=== PATIENT | female | born 1970 | race African-American/Black ===

== ENCOUNTER 2018-06-11 03:45 | Emergency (ER) | payer MEDICAID ==
[2018-06-11 03:53] VITALS: BP 122/81
[2018-06-11] MEDS ORDERED: DEXAMETHASONE SOD PHOS INJ 10 MG/1 ML VIAL IM ONE (04:21)
--- NOTE | 2018-06-11 05:03 | ER Document Report ---
HPI - HPI Patient complains to provider of: ear pain, cough, sore throat Time Seen by Provider: 06/11/18 04:11 Pain Level: 4 Context: Patient is a 47-year-old female that comes to the emergency department for chief complaint of ear pain worse on the left, congestion, cough, sore throat. Symptoms began about 4 days ago. She denies fever, wheezing, difficulty breathing, chest pain. She states she had asthma as a child, she does not smoke , she is not on any current treatments for asthma. Past medical history of ulcerative colitis, not on any steroids, on mesalamine. - CONSTITUTIONAL Constitutional: DENIES: Fever, Chills - EENT EENT: REPORTS: Sore Throat, Ear Pain - bilateral. DENIES: Eye problems - NEURO Neurology: DENIES: Headache, Weakness, Vision blurred, Dizzinesss / Vertigo - CARDIOVASCULAR Cardiovascular: DENIES: Chest pain - RESPIRATORY Respiratory: REPORTS: Coughing. DENIES: Trouble Breathing - GASTROINTESTINAL Gastrointestinal: DENIES: Abdominal Pain, Black / Bloody Stools - URINARY Urinary: DENIES: Dysuria, Urgency, Frequency - REPRODUCTIVE Reproductive: DENIES: : - MUSCULOSKELETAL Musculoskeletal: DENIES: Extremity pain Past Medical History - General Information source: Patient - Social History Smoking Status: Never Smoker Chew tobacco use (# tins/day): No Frequency of alcohol use: None Lives with: Family Family History: Reviewed & Not Pertinent Patient has suicidal ideation: No Patient has homicidal ideation: No - Past Medical History Cardiac Medical History: Reports: Hx Hypertension, Hx Pulmonary Embolism Pulmonary Medical History: Reports: Hx Asthma - Childhood asthma Renal/ Medical History: Denies: Hx Peritoneal Dialysis GI Medical History: Reports: Hx Irritable Bowel, Hx Ulcerative Colitis Musculoskeletal Medical History: Denies Hx Arthritis Psychiatric Medical History: Reports: Hx Anxiety, Hx Schizophrenia Past Surgical History: Reports: Hx Section - 4 - Immunizations Immunizations up to date: Yes Hx Diphtheria, Pertussis, Tetanus Vaccination: Yes - 2010 Vertical Provider Document - CONSTITUTIONAL General Appearance: WD/WN, No Apparent Distress - INFECTION CONTROL TRAVEL OUTSIDE OF THE [place] IN LAST 30 DAYS: No - HEENT HEENT: Atraumatic, Normocephalic. negative: Normal ENT Exam - Mild sinus congestion, mild erythema of the posterior pharynx, no exudate pharyngitis or evidence of peritonsillar abscess. Clear airway. Normal uvula. Left otitis media with bulging tympanic membrane and erythema, small purulent effusion. Normal mastoids bilaterally. Normal ENT examination otherwise. - NECK Neck: Other - Mild bilateral anterior cervical adenopathy, normal no evidence of Aman's angina - RESPIRATORY Respiratory: Breath Sounds Normal, No Respiratory Distress, Other - Mild occasional cough - CARDIOVASCULAR Cardiovascular: Regular Rate, Regular Rhythm - GI/ABDOMEN Gastrointestinal: Abdomen Soft, Abdomen Non-Tender - BACK Back: Normal Inspection - MUSCULOSKELETAL/EXTREMETIES Musculoskeletal/Extremeties: MAEW, FROM, Non-Tender - NEURO Level of Consciousness: Awake, Alert, Appropriate - DERM Integumentary: Warm, Dry, No Rash Course - Re-evaluation Re-evalutation: Strep is negative. Examination is consistent with viral upper respiratory infection and secondary otitis media. Will treat with dexamethasone and amoxicillin. Discussed results with patient. Unremarkable vital signs. Discussed follow-up and return precautions. Patient states understanding and agreement with plan. - Vital Signs Vital signs: Temp Pulse Resp BP Pulse Ox 98.7 F 72 16 122/81 97 06/11/18 03:46 06/11/18 03:46 06/11/18 03:46 06/11/18 03:46 06/11/18 03:46 Discharge - Discharge Clinical Impression: Cough Otitis media Qualifiers: Otitis media type: suppurative Chronicity: acute Laterality: left Recurrence: non-recurrent Spontaneous tympanic membrane rupture: without spontaneous rupture Qualified Code(s): H66.002 - Acute suppurative otitis media without spontaneous rupture of ear drum, left ear Pharyngitis Qualifiers: Pharyngitis/tonsillitis etiology: unspecified etiology Qualified Code(s): J02.9 - Acute pharyngitis, unspecified Condition: Stable Disposition: HOME, SELF-CARE Additional Instructions: Your strep throat test is negative. Your evaluation is consistent with an upper respiratory viral infection and developing ear infection on the left side. Take the medications as prescribed, you can take additional medication such as ibuprofen, Tylenol, Sudafed as sinus decongestant, Mucinex as chest decongestant, etc. Follow-up with primary care. Return to the emergency department for any concerning symptoms including difficulty breathing or swallowing. Prescriptions: Amoxicillin Trihydrate [Amoxil 875 mg Tablet] 1 tab PO BID #20 tablet Fluticasone Propionate [Flonase Nasal Lagrange 50 Mcg/Lagrange 16 gm] 2 sprays NASL Q12 #1 inhaler Forms: Return to Work Referrals: SIS FRANCIS MD [Primary Care Provider] - Follow up as needed
== END 2018-06-11 05:20 | disposition home or self-care (01) ==
LOC: ER 03:45
DX: H66.002 Acute suppurative otitis media without spontaneous rupture of ear drum, left ear (principal); J02.9 Acute pharyngitis, unspecified; R05 Cough; H92.03 Otalgia, bilateral; I10 Essential (primary) hypertension; K51.90 Ulcerative colitis, unspecified, without complications; Z79.899 Other long term (current) drug therapy; R09.81 Nasal congestion
CPT/HCPCS: 99283; 96372; 87070; 87880; J1100

== ENCOUNTER 2019-08-29 18:08 | Emergency (ER) | payer MEDICAID ==
--- NOTE | 2019-08-29 19:19 | ER Document Report ---
ED Medical Screen (RME) - General Chief Complaint: Vaginal Bleeding Stated Complaint: VAGINAL BLEEDING Time Seen by Provider: 08/29/19 19:16 Primary Care Provider: SIS FRANCIS MD [Primary Care Provider] - Follow up as needed Notes: Patient is a 48-year-old female presents emergency department with the chief complaint of vaginal bleeding for the past 2 weeks. Patient states that she started her menstrual cycle 2 weeks ago and has not stopped bleeding. Denies any excessive bleeding. Denies any pain. States that she had this before 8 years ago. She notes that she had a few clots recently. She also has hypertension and cannot recall if she took a double dose of her blood pressure medication. Exam: Soft, nontender abdomen. Blood pressure 90/53. Map 65. I have greeted and performed a rapid initial assessment of this patient. A comprehensive ED assessment and evaluation of the patient, analysis of test results and completion of medical decision making process will be conducted by an additional ED providers. TRAVEL OUTSIDE OF THE [place] IN LAST 30 DAYS: No - Related Data Allergies/Adverse Reactions: levofloxacin [From Neocutis] Allergy (Mild, Verified 06/11/18 04:29) itching Home Medications: Haloperidol. Benztropine. Depakote. Clonazapam. Adderrall. Metoprolol. Amlodipine Past Medical History - Social History Frequency of alcohol use: Occasional Drug Abuse: None - Past Medical History Cardiac Medical History: Reports: Hx Hypertension, Hx Pulmonary Embolism Pulmonary Medical History: Reports: Hx Asthma - Childhood asthma Endocrine Medical History: Reports: Hx Diabetes Mellitus Type 2 - WHEN ON STEROIDS Renal/ Medical History: Denies: Hx Peritoneal Dialysis GI Medical History: Reports: Hx Irritable Bowel, Hx Ulcerative Colitis Musculoskeltal Medical History: Denies Hx Arthritis Psychiatric Medical History: Reports: Hx Anxiety, Hx Schizophrenia Past Surgical History: Reports: Hx Section - 4 - Immunizations Immunizations up to date: Yes Hx Diphtheria, Pertussis, Tetanus Vaccination: Yes - 2010 Physical Exam - Vital signs Vitals: Temp Pulse Resp BP Pulse Ox 98.1 F 72 20 90/53 L 100 08/29/19 18:50 08/29/19 18:50 08/29/19 18:50 08/29/19 18:50 08/29/19 18:50 Course - Vital Signs Vital signs: Temp Pulse Resp BP Pulse Ox 98.1 F 72 20 90/53 L 100 08/29/19 18:50 08/29/19 18:50 08/29/19 18:50 08/29/19 18:50 08/29/19 18:50 Doctor's Discharge - Discharge Referrals: SIS FRANCIS MD [Primary Care Provider] - Follow up as needed
--- NOTE | 2019-08-29 20:50 | RADIOLOGY REPORT (SQ) ---
EXAM DESCRIPTION: US PELVIS TRANSVAGINAL COMPLETED DATE/TME: 08/29/2019 19:17 CLINICAL HISTORY: 48 years, Female, vaginal bleeding x2 weeks COMPARISON: None. TECHNIQUE: Axial 2-D grayscale images of the pelvis were acquired. Doppler was utilized. LIMITATIONS: None. FINDINGS: Uterus measures 7.2 x 3.9 x 5.6 cm in size. It appears diffusely heterogenous in echotexture, containing a hypoechoic area about the lower uterine segment measuring 2.0 x 2.4 x 1.6 cm in size, intramural in location. This lesion appears to demonstrate foci of hyperechogenicity, suggestive of calcification. Endometrial stripe thickness measures 8 mm, within normal limits for a premenopausal female. Cervix is closed, measuring 2.4 cm in length. Neither ovary was visualized. No significant free fluid is identified within the pelvis. IMPRESSION: Suspect fibroid uterus. Nonvisualization of either ovary. Otherwise, no acute sonographic finding. copyright 2010 [employer]- All Rights Reserved
[2019-08-29 21:18] LABS: ABSOLUTE EOSINOPHILS # (AUTO) 0.1 10^3/uL (0.0-0.6); ABSOLUTE LYMPHOCYTES (AUTO) 1.7 10^3/uL (0.5-4.7); ABSOLUTE MONOCYTES (AUTO) 0.4 10^3/uL (0.1-1.4); ABSOLUTE NEUT (AUTO) 2.5 10^3/uL (1.7-8.2); BASOPHILS % (AUTO) 0.8 % (0-2); EOSINOPHILS % (AUTO) 2.8 % (0-6); HEMATOCRIT 34.7 % (36.0-47.0); HEMOGLOBIN 11.2 g/dL (12.0-15.5); LYMPHOCYTES % (AUTO) 35.4 % (13-45); MEAN CORPUSCULAR HEMOGLOBIN 27.8 pg (27.0-33.4); MEAN CORPUSCULAR HGB CONC 32.5 g/dL (32.0-36.0); MEAN CORPUSCULAR VOLUME 86 fl (80-97); MONOCYTES % (AUTO) 8.4 % (3-13); PLATELET COUNT 215 10^3/uL (150-450); RED BLOOD COUNT 4.05 10^6/uL (3.72-5.28); RED CELL DISTRIBUTION WIDTH 14.1 % (11.5-14.0); SEGMENTED NEUTROPHILS % (AUTO) 52.6 % (42-78); TOTAL CELLS COUNTED % (AUTO) 100 %; WHITE BLOOD COUNT 4.8 10^3/uL (4.0-10.5)
[2019-08-29 21:40] LABS: ANION GAP 6 (5-19); BLOOD UREA NITROGEN 21 mg/dL (7-20); CALCIUM 8.9 mg/dL (8.4-10.2); CARBON DIOXIDE 30 mmol/L (22-30); CHLORIDE 103 mmol/L (98-107); POTASSIUM 4.2 mmol/L (3.6-5.0)
[2019-08-29 21:59] LABS: GLUCOSE 61 mg/dL (75-110)
[2019-08-30 00:07] LABS: APPEARANCE,URINE CLEAR; BILIRUBIN,URINE NEGATIVE (NEGATIVE); COLOR,URINE YELLOW; GLUCOSE, URINE NEGATIVE (NEGATIVE); KETONES,URINE NEGATIVE (NEGATIVE); LEUKOCYTE ESTERASE,URINE NEGATIVE (NEGATIVE); NITRITE,URINE NEGATIVE (NEGATIVE); PROTEIN,URINE NEGATIVE (NEGATIVE); URINE SPECIFIC GRAVITY 1.014; UROBILINOGEN,URINE NEGATIVE mg/dL (<2.0)
[2019-08-30] MEDS ORDERED: NORMAL SALINE 1000 ML 1,000 ML IV ONE (00:09)
--- NOTE | 2019-08-30 00:14 | ER Document Report ---
ED General - General Chief Complaint: Vaginal Bleeding Stated Complaint: VAGINAL BLEEDING Time Seen by Provider: 08/29/19 19:16 Primary Care Provider: SIS FRANCIS MD [Primary Care Provider] - Follow up as needed TRAVEL OUTSIDE OF THE [place] IN LAST 30 DAYS: No - HPI Notes: 48-year-old female seen for evaluation of vaginal bleeding. Patient is a multipara who is postmenopausal. She experienced heavy vaginal bleeding several years ago was told when she had a fibroid uterus but no definitive intervention was recommended and problem resolved itself. She has been bleeding heavier than her normal period within the last 2 weeks intermittently. Passed some clots last night. No cramping or pain. No fever. She is not currently taking aspirin or any type of blood thinning medication. Patient's primary care physician is Dr. Francis. She said today she normally takes multiple antihypertensive medications and thinks that she may have accidentally doubled up on her blood pressure medication. She was noted to have a relatively low blood pressure here. She is not syncopal not having any shortness of breath or chest pain. - Related Data Allergies/Adverse Reactions: levofloxacin [From Levaquin] Allergy (Mild, Verified 06/11/18 04:29) itching Home Medications: Haloperidol. Benztropine. Depakote. Clonazapam. Adderrall. Metoprolol. Amlodipine Past Medical History - General Information source: Patient - Social History Smoking Status: Former Smoker Frequency of alcohol use: Occasional Drug Abuse: None Family History: Reviewed & Not Pertinent Patient has suicidal ideation: No Patient has homicidal ideation: No - Past Medical History Cardiac Medical History: Reports: Hx Hypertension, Hx Pulmonary Embolism Pulmonary Medical History: Reports: Hx Asthma - Childhood asthma Endocrine Medical History: Reports: Hx Diabetes Mellitus Type 2 - WHEN ON STEROIDS Renal/ Medical History: Denies: Hx Peritoneal Dialysis GI Medical History: Reports: Hx Irritable Bowel, Hx Ulcerative Colitis Musculoskeletal Medical History: Denies Hx Arthritis Psychiatric Medical History: Reports: Hx Anxiety, Hx Schizophrenia Past Surgical History: Reports: Hx Section - 4 - Immunizations Immunizations up to date: Yes Hx Diphtheria, Pertussis, Tetanus Vaccination: Yes - 2010 Review of Systems - Review of Systems Notes: Constitutional: Negative for fever. HENT: Negative for sore throat. Eyes: Negative for visual changes. Cardiovascular: Negative for chest pain. Respiratory: Negative for shortness of breath. Gastrointestinal: Negative for abdominal pain, vomiting or diarrhea. Genitourinary: As per HPI. Musculoskeletal: Negative for back pain. Skin: Negative for rash. Neurological: Negative for headaches, weakness or numbness. 10 point ROS negative except as marked above and in HPI. Physical Exam - Vital signs Vitals: Temp Pulse Resp BP Pulse Ox 98.1 F 72 20 90/53 L 100 08/29/19 18:50 08/29/19 18:50 08/29/19 18:50 08/29/19 18:50 08/29/19 18:50 - Notes Notes: GENERAL: Well-developed well-nourished appearing in no acute distress. SKIN: Good turgor no rashes. HEAD: Normocephalic atraumatic. EYES: PERRLA. EOMI. Conjunctivae and sclerae clear. EARS: CANALS AND TMS CLEAR. NOSE: CLEAR. MOUTH: Moist mucosa. Good dentition. No stridor or edema. No drooling. NECK: Supple. No masses or thyromegaly. No adenopathy. Carotids 2+ without bruits. No JVD. BACK: Symmetrical without tenderness. CHEST: Respirations unlabored. Breath sounds clear and symmetrical. HEART: Regular rhythm. No murmur gallop or rub. ABDOMEN: Soft nontender without masses, organomegaly or rebound. Bowel sounds normally active. No bruits. GENITALIA: Deferred. EXTREMITIES: No edema. No calf tenderness. Cap refill less than 1.5 seconds. Dorsalis pedis and posterior tibial pulses 3+ and symmetrical. NEUROLOGICAL: GCS 15. Alert and oriented x3. Normal gait. Fluent speech. Cranial nerves II through XII intact. Sensorimotor and cerebellar normal. Normal tone. PSYCHIATRIC: Appropriate affect. Course - Re-evaluation Re-evalutation: 08/30/19 00:13 Blood pressure presently is 95/65. She is not actively vaginal bleeding at this time. She is otherwise asymptomatic. Her hemoglobin is stable. Pelvic ultrasound shows fibroid uterus. test negative. I am going to infuse 1 L normal saline and reassess her blood pressure and if this is stable or improving I am going to send her out with some Provera and have her follow-up with her primary care doctor tomorrow and ultimately with gynecology. 08/30/19 01:08 Repeat blood pressure systolic is 99 at this time and patient is asymptomatic. I am going to start her on oral Provera and have her follow-up with primary care and gynecology outpatient. - Vital Signs Vital signs: Temp Pulse Resp BP Pulse Ox 97.8 F 71 16 99/63 L 97 08/30/19 01:04 08/30/19 01:04 08/30/19 01:04 08/30/19 01:04 08/30/19 01:04 - Laboratory Result Diagrams: 08/29/19 20:50 08/29/19 20:50 Laboratory results interpreted by me: 08/29/19 08/29/19 20:50 20:50 Hgb 11.2 L Hct 34.7 L RDW 14.1 H BUN 21 H Glucose 61 L Discharge - Discharge Clinical Impression: Dysfunctional uterine bleeding, Fibroid uterus Condition: Stable Disposition: HOME, SELF-CARE Additional Instructions: Return here as needed for new or worsening symptoms. Follow-up with Dr. Francis and your rounder and backer within the next 2 to 3 days. Take prescribed medications as directed. Prescriptions: Medroxyprogesterone Acet [Provera 10 Mg Tablet] 10 mg PO BID 5 Days #10 tablet Referrals: SIS FRANCIS MD [Primary Care Provider] - Follow up as needed
[2019-08-30 01:05] VITALS: BP 99/63
== END 2019-08-30 01:16 | disposition home or self-care (01) ==
LOC: ER 18:08
DX: N93.8 Other specified abnormal uterine and vaginal bleeding (principal); D25.9 Leiomyoma of uterus, unspecified; Z79.899 Other long term (current) drug therapy; Z88.8 Allergy status to other drugs, medicaments and biological substances; Z87.891 Personal history of nicotine dependence; I10 Essential (primary) hypertension; J45.909 Unspecified asthma, uncomplicated; E11.9 Type 2 diabetes mellitus without complications
CPT/HCPCS: 99283; 96360; 86900; 86901; 36415; 86850; 82962; 84703; 85025; 80048; 81001; 76830; 93976; J7030

== ENCOUNTER 2020-05-13 06:41 | Emergency (ER) | payer MEDICAID ==
[2020-05-13 08:02] LABS: APPEARANCE,URINE CLEAR; BILIRUBIN,URINE NEGATIVE (NEGATIVE); COLOR,URINE COLORLESS; GLUCOSE, URINE NEGATIVE (NEGATIVE); KETONES,URINE NEGATIVE (NEGATIVE); LEUKOCYTE ESTERASE,URINE NEGATIVE (NEGATIVE); NITRITE,URINE NEGATIVE (NEGATIVE); PROTEIN,URINE NEGATIVE (NEGATIVE); URINE SPECIFIC GRAVITY 1.002; UROBILINOGEN,URINE NEGATIVE mg/dL (<2.0)
[2020-05-13 08:10] LABS: ABSOLUTE EOSINOPHILS # (AUTO) 0.1 10^3/uL (0.0-0.6); ABSOLUTE LYMPHOCYTES (AUTO) 1.5 10^3/uL (0.5-4.7); ABSOLUTE MONOCYTES (AUTO) 0.4 10^3/uL (0.1-1.4); ABSOLUTE NEUT (AUTO) 2.5 10^3/uL (1.7-8.2); BASOPHILS % (AUTO) 1.1 % (0-2); EOSINOPHILS % (AUTO) 1.9 % (0-6); HEMOGLOBIN 11.7 g/dL (12.0-15.5); LYMPHOCYTES % (AUTO) 33.4 % (13-45); MEAN CORPUSCULAR HGB CONC 33.6 g/dL (32.0-36.0); MEAN CORPUSCULAR VOLUME 83 fl (80-97); MONOCYTES % (AUTO) 8.2 % (3-13); PLATELET COUNT 258 10^3/uL (150-450); RED CELL DISTRIBUTION WIDTH 13.8 % (11.5-14.0); SEGMENTED NEUTROPHILS % (AUTO) 55.4 % (42-78); TOTAL CELLS COUNTED % (AUTO) 100 %; WHITE BLOOD COUNT 4.5 10^3/uL (4.0-10.5)
--- NOTE | 2020-05-13 09:41 | ER Document Report ---
ED GI/ - General Chief Complaint: Vaginal Bleeding Stated Complaint: VAGINAL BLEEDING/BACK PAIN Time Seen by Provider: 05/13/20 09:33 Primary Care Provider: [facility] [Provider Group] - Follow up as needed SIS FRANCIS MD [Primary Care Provider] - Follow up as needed Notes: Patient is a 49-year-old female presents emergency department with a chief complaint of vaginal bleeding. Patient states that her bleeding started yesterday. Describes her bleeding as a dark red bleeding. Denies any clots. States that she has not had a menstrual cycle in 2 years. Patient states that she was sexually active, but did not use protection. TRAVEL OUTSIDE OF THE [place] IN LAST 30 DAYS: No - Related Data Allergies/Adverse Reactions: levofloxacin [From Levaquin] Allergy (Mild, Verified 05/13/20 07:39) itching Past Medical History - Social History Smoking Status: Current Every Day Smoker Chew tobacco use (# tins/day): No Frequency of alcohol use: None Drug Abuse: None Family History: Reviewed & Not Pertinent - Past Medical History Cardiac Medical History: Reports: Hx Hypertension, Hx Pulmonary Embolism Pulmonary Medical History: Reports: Hx Asthma - Childhood asthma Endocrine Medical History: Reports: Hx Diabetes Mellitus Type 2 - WHEN ON STEROIDS Renal/ Medical History: Denies: Hx Peritoneal Dialysis GI Medical History: Reports: Hx Irritable Bowel, Hx Ulcerative Colitis Musculoskeletal Medical History: Denies Hx Arthritis Psychiatric Medical History: Reports: Hx Anxiety, Hx Schizophrenia Past Surgical History: Reports: Hx Section - 4 - Immunizations Immunizations up to date: Yes Hx Diphtheria, Pertussis, Tetanus Vaccination: Yes - 2010 Review of Systems - Review of Systems Notes: REVIEW OF SYSTEMS: CONSTITUTIONAL : Denies recent illness. Denies recent unintentional weight loss. Denies fever, chills, or sweats. EENT: Denies eye, ear, throat, or mouth pain, discharge, or symptoms. Denies nasal or sinus congestion. CARDIOVASCULAR: Denies chest pain. RESPIRATORY: Denies shortness of breath, cough, congestion, difficulty breathing, or wheezing. GASTROINTESTINAL: Denies nausea, vomiting, and diarrhea. Denies abdominal pain. Denies constipation. GENITOURINARY: Denies difficulty urinating, burning, blood in urine, urgency or frequency. FEMALE GENITOURINARY: See HPI. MUSCULOSKELETAL: Denies neck and back pain. Denies joint pain or swelling. SKIN: Denies rash, itchiness, or lesions HEMATOLOGIC : Denies easy bruising or bleeding. LYMPHATIC: Denies swollen, painful, enlarged glands. NEUROLOGICAL: Denies no numbness or tingling denies weakness. Denies headache. Denies altered mental status. Denies alteration in speech. PSYCHIATRIC: Denies stress, anxiety, alteration in sleep patterns, or depression. All other systems reviewed and negative. Physical Exam - Vital signs Vitals: Temp Pulse Resp BP Pulse Ox 98.2 F 84 16 133/86 H 100 05/13/20 07:02 05/13/20 07:02 05/13/20 07:02 05/13/20 07:02 05/13/20 07:02 - Notes Notes: PHYSICAL EXAMINATION: GENERAL: Appears well, healthy, well-nourished, no acute distress. HEAD: Normocephalic, atraumatic. EYES: PERRL, conjunctiva normal, all extraocular movements intact, sclera nonicteric ENT: Moist mucous membranes. NECK: Supple, no noticeable swelling, redness, rash. Normal range of motion. LUNGS: Equal breath sounds bilaterally and clear to auscultation. No wheezes rales or rhonchi. CARDIOVASCULAR: S1-S2, regular rate, regular rhythm. Radial pulses 2+, normal. ABDOMEN: Normoactive bowel sounds. Soft, nontender, no guarding, no rebound tenderness, and no masses palpated. EXTREMITIES: Normal strength and range of motion, no pitting or edema. No cyano sis. NEUROLOGICAL: Moves all extremities upon command. Strength 5/5 in all extremities. PSYCH: Normal mood, normal affect. SKIN: Warm, dry. No rash, lesions, ulcerations noted. Normal skin turgor. SILVER STEWARD: Small amount of brown discharge noted. Course - Re-evaluation Re-evalutation: 05/13/20 10:42 Ricardo, PCT at bedside. No cervical motion tenderness or adnexal tenderness. Small amount of brown discharge noted. 05/13/20 11:43 Presentation is most consistent with bacterial vaginosis. Examination is without evidence of cervical motion tenderness, adnexal tenderness, no abdominal tenderness. Do not suspect tubo-ovarian abscess, gonorrhea, chlamydia, or pelvic inflammatory disease. Vitals within normal limits. Wet mount does demonstrate bacteria and white blood cells. Patient will be started on metronidazole. She has been discharged home with return precautions and follow- up recommendations. - Vital Signs Vital signs: Temp Pulse Resp BP Pulse Ox 97.9 F 84 20 125/77 100 05/13/20 13:14 05/13/20 07:02 05/13/20 13:11 05/13/20 13:11 05/13/20 13:11 - Laboratory Result Diagrams: 05/13/20 07:52 Laboratory results interpreted by me: 05/13/20 05/13/20 07:05 07:52 Hgb 11.7 L Hct 35.0 L Urine Blood MODERATE H Discharge - Discharge Clinical Impression: Bacterial vaginosis Uterine fibroid Qualifiers: Uterine leiomyoma location: unspecified location Qualified Code(s): D25.9 - Leiomyoma of uterus, unspecified Condition: Stable Disposition: HOME, SELF-CARE Additional Instructions: You have an overgrowth of natural vaginal bacteria, called bacterial vaginosis. You are being treated with an antibiotic called metronidazole. Do not drink alcohol while taking this medication. Complete all of the antibiotic even if your symptoms have resolved. Return for abdominal pain, vomiting, fever of greater than 101F, or any other symptoms that are worrisome to you. Please follow-up with your WATER PURIFIER OPERATOR or primary care doctor as needed. You also have a fibroid in your uterus. Normally these do not cause any problems. If you continue to have problems, have your WATER PURIFIER OPERATOR follow up with the fibroid. Prescriptions: Metronidazole [Flagyl 500 mg Tablet] 500 mg PO Q6H #28 tablet Forms: Return to Work Referrals: SIS FRANCIS MD [Primary Care Provider] - Follow up as needed [facility] [Provider Group] - Follow up as needed
[2020-05-13 10:52] LABS: T.VAGINALIS (WET MOUNT) NO TRICHOMONAS SEEN; WBCS (WET MOUNT) RARE WBCS SEEN; YEAST (WET MOUNT) NO YEAST SEEN
[2020-05-13 10:53] LABS: BACTERIA (WET MOUNT) 3+ BACTERIA SEEN; EPITHELIALS (WET MOUNT) 3+ EPITHELIALS SEEN
--- NOTE | 2020-05-13 11:02 | RADIOLOGY REPORT (SQ) ---
EXAM DESCRIPTION: U/S NON OB PEL TV W/DOPPLER IMAGES COMPLETED DATE/TIME: 05/13/2020 10:41 am REASON FOR STUDY: vaginal bleeding COMPARISON: 08/29/2019 TECHNIQUE: Dynamic and static grayscale images acquired of the pelvis via transvaginal approach and recorded on PACS. Additional selected color Doppler and spectral images recorded. LIMITATIONS: None. FINDINGS: UTERUS: Normal size. 1 cm fibroid. ENDOMETRIAL STRIPE: No focal or generalized thickening. No masses. CERVIX: No nabothian cysts. RIGHT OVARY AND DOPPLER: Ovary not visualized. LEFT OVARY AND DOPPLER: Normal size. No worrisome masses. Normal arterial vascular flow without evide nce for torsion. FREE FLUID: None noted. OTHER: No other significant finding. IMPRESSION: Small fibroid. TECHNICAL DOCUMENTATION: JOB ID: [id number] 2010 [employer]- All Rights Reserved Rev-11/19 Reading location - IP/workstation name: [email or web address]
[2020-05-13] MEDS ORDERED: AZITHROMYCIN 250 MG TABLET PO ONE (11:29)
[2020-05-13] MEDS ORDERED: CEFTRIAXONE INJ 250 MG VIAL IM ONE (11:29)
[2020-05-13] MEDS ORDERED: LIDOCAINE 1% INJ-PF (10 MG/ML) 30 ML SDV INJ ONE (11:29)
[2020-05-13 12:19] LABS: CHLAM PCR NOT DETECTED (NOT DETECT)
[2020-05-13 13:14] VITALS: BP 125/77
== END 2020-05-13 13:14 | disposition home or self-care (01) ==
LOC: ER 06:41
DX: D25.9 Leiomyoma of uterus, unspecified (principal); N76.0 Acute vaginitis; B96.89 Other specified bacterial agents as the cause of diseases classified elsewhere; F17.200 Nicotine dependence, unspecified, uncomplicated; I10 Essential (primary) hypertension; Z88.1 Allergy status to other antibiotic agents
CPT/HCPCS: 99285; 96372; 36415; 87210; 85025; 81001; 87491; 87591; 76830; 93976; Q0144; J3490; J0696

== ENCOUNTER 2020-06-30 03:43 | Emergency (ER) | payer MEDICAID ==
[2020-06-30] MEDS ORDERED: TETRACAINE HCL 0.5% OPH SOLN 4 ML OD ONE (07:32)
--- NOTE | 2020-06-30 07:47 | ER Document Report ---
ED General - General Chief Complaint: Redness of Eye Stated Complaint: RIGHT EYE DRAINAGE Time Seen by Provider: 06/30/20 06:16 Primary Care Provider: SIS FRANCIS MD [Primary Care Provider] - Follow up as needed TRAVEL OUTSIDE OF THE [place] IN LAST 30 DAYS: No - HPI Notes: Chief complaint: Right eye irritation History of present illness: Generally healthy 49-year-old female taking no regular medications presents with a 3 to 4-day history of irritation of her right eye. Patient said initially she had a hair in her right eye and she brushed this away. Thereafter the eye has become slightly red and she is having some purulent discharge at the inner [place] when she awakens in the morning. She denies fever chills. She denies any respiratory symptoms. She is not currently using contacts. Uses glasses for reading. - Related Data Allergies/Adverse Reactions: levofloxacin [From Levaquin] Allergy (Mild, Verified 05/13/20 07:39) itching Home Medications: lealda. metoprolol. amlodipine. clonipine. depakote. cogentin. allopurinol Past Medical History - General Information source: Patient - Social History Smoking Status: Never Smoker Chew tobacco use (# tins/day): No Frequency of alcohol use: None Drug Abuse: None Family History: Reviewed & Not Pertinent - Past Medical History Cardiac Medical History: Reports: Hx Hypertension, Hx Pulmonary Embolism Pulmonary Medical History: Reports: Hx Asthma - Childhood asthma Endocrine Medical History: Reports: Hx Diabetes Mellitus Type 2 - WHEN ON STEROIDS Renal/ Medical History: Denies: Hx Peritoneal Dialysis GI Medical History: Reports: Hx Irritable Bowel, Hx Ulcerative Colitis Musculoskeletal Medical History: Denies Hx Arthritis Psychiatric Medical History: Reports: Hx Anxiety, Hx Schizophrenia Past Surgical History: Reports: Hx Section - 4 - Immunizations Immunizations up to date: Yes Hx Diphtheria, Pertussis, Tetanus Vaccination: Yes - 2010 Review of Systems - Review of Systems Notes: Constitutional: Negative for fever. HENT: Negative for sore throat. Eyes: As per HPI. Cardiovascular: Negative for chest pain. Respiratory: Negative for shortness of breath. Gastrointestinal: Negative for abdominal pain, vomiting or diarrhea. Genitourinary: Negative for dysuria. Musculoskeletal: Negative for back pain. Skin: Negative for rash. Neurological: Negative for headaches, weakness or numbness. 10 point ROS negative except as marked above and in HPI. Physical Exam - Vital signs Vitals: Temp Pulse Resp BP Pulse Ox 98.4 F 80 18 122/79 100 06/30/20 03:50 06/30/20 03:50 06/30/20 03:50 06/30/20 03:50 06/30/20 03:50 - Notes Notes: GENERAL: S middle-age female appearing in no acute distress. SKIN: Good turgor no rashes. HEAD: Normocephalic atraumatic. EYES: Mild conjunctival injection of right eye PERRLA. EOMI. visual acuity is normal. NECK: Supple. No masses or thyromegaly. No adenopathy. Carotids 2+ without bruits. No JVD. BACK: Symmetrical without tenderness. CHEST: Respirations unlabored. Breath sounds clear and symmetrical. HEART: Regular rhythm. No murmur gallop or rub. ABDOMEN: Soft nontender without masses, organomegaly or rebound. Bowel sounds normally active. No bruits. EXTREMITIES: No edema. No calf tenderness. Cap refill less than 1.5 seconds. Dorsalis pedis and posterior tibial pulses 3+ and symmetrical. NEUROLOGICAL: Alert and oriented x3. Nonfocal. PSYCHIATRIC: Appropriate affect. Course - Vital Signs Vital signs: Temp Pulse Resp BP Pulse Ox 98.3 F 76 16 112/69 100 06/30/20 06:54 06/30/20 06:54 06/30/20 06:54 06/30/20 06:54 06/30/20 06:54 - Laboratory Results Critical Laboratory Results Reviewed: No Critical Results - Radiology Results Critical Radiology Results Reviewed: No Critical Results Procedures - Eye Procedure Right Time completed: 07:40 Alcaine Drops Administered: No Acular drops administered: Right Fluorescein applied: Right Slit lamp used: Yes Notes: 06/30/20 07:41 No abrasion. No ulceration. No dendrites. No foreign body. Discharge - Discharge Clinical Impression: Conjunctivitis right eye Condition: Stable Disposition: HOME, SELF-CARE Additional Instructions: Conjunctivitis You have an infection in your eye, commonly known as "pink eye." Conjunctivitis causes redness, mild discomfort, itching, and mattering on the eyelids. It is very contagious, so you must be careful to wash your hands after touching your face so you don't pass the infection on to others. Conjunctivitis is caused by both viruses and bacteria. It usually responds quickly to treatment with antibiotic drops. These should be placed in the eye as prescribed (usually every three to four hours while you're awake). If you wear contact lenses, don't put them in your eyes until the infection is cleared and you are no longer using the drops (unless your doctor advises you otherwise). Should you develop increasing eye pain, severe swelling, decreased vision, or fail to improve as expected, please return for re-examination. Follow-up with your eye doctor or your primary care provider if your symptoms do not resolve within the next 3 days. Wear dark glasses if you go outside. Return here as needed for new or worsening symptoms: Pain that is worsening or unimproved Uncontrolled vomiting High fever or shaking chills Overall worsening Prescriptions: Sulfacetamide Sodium [Bleph-10] 2 drop OD Q4H #5 ml Referrals: SIS FRANCIS MD [Primary Care Provider] - Follow up as needed
[2020-06-30 08:15] VITALS: BP 101/68
== END 2020-06-30 08:15 | disposition home or self-care (01) ==
LOC: ER 03:43
DX: H10.9 Unspecified conjunctivitis (principal); I10 Essential (primary) hypertension; F41.9 Anxiety disorder, unspecified; Z79.899 Other long term (current) drug therapy; Z88.1 Allergy status to other antibiotic agents
CPT/HCPCS: 99283; J3490

== ENCOUNTER 2020-07-14 23:15 | Emergency (ER) | payer MEDICAID ==
[2020-07-15] MEDS ORDERED: KETOROLAC TROMETHAMINE INJ/PF 30 MG/1 ML SDV IV ONE (00:52)
[2020-07-15] MEDS ORDERED: METOCLOPRAMIDE HCL INJ/PF 10 MG/2 ML SDV IV ONE (00:52)
[2020-07-15] MEDS ORDERED: DIPHENHYDRAMINE HCL 50 MG/ML VIAL IV ONE (00:52)
--- NOTE | 2020-07-15 00:54 | ER Document Report ---
ED Medical Screen (RME) - General Stated Complaint: HEADACHE Time Seen by Provider: 07/15/20 00:36 Primary Care Provider: SIS FRANCIS MD [Primary Care Provider] - Follow up as needed TRAVEL OUTSIDE OF THE [place] IN LAST 30 DAYS: No - HPI Notes: Patient is a 49-year-old female who presents with intermittent headache for the past 2 months. She describes the headache as frontal and pounding in nature that worsens when she lays down. Patient has been taking ibuprofen with minimal relief. She denies fever, blurred vision, dizziness, chest pain, shortness of breath, and vomiting. Patient denies a history of migraines but states her mother had migraines. - Related Data Allergies/Adverse Reactions: levofloxacin [From Levaquin] Allergy (Mild, Verified 05/13/20 07:39) itching Past Medical History - Past Medical History Cardiac Medical History: Reports: Hx Hypertension, Hx Pulmonary Embolism Pulmonary Medical History: Reports: Hx Asthma - Childhood asthma Endocrine Medical History: Reports: Hx Diabetes Mellitus Type 2 - WHEN ON STEROIDS Renal/ Medical History: Denies: Hx Peritoneal Dialysis GI Medical History: Reports: Hx Irritable Bowel, Hx Ulcerative Colitis Musculoskeltal Medical History: Denies Hx Arthritis Psychiatric Medical History: Reports: Hx Anxiety, Hx Schizophrenia Past Surgical History: Reports: Hx Section - 4 - Immunizations Immunizations up to date: Yes Hx Diphtheria, Pertussis, Tetanus Vaccination: Yes - 2010 Physical Exam - Vital signs Vitals: Temp Pulse Resp BP Pulse Ox 98.3 F 80 15 148/88 H 100 07/14/20 23:46 07/14/20 23:46 07/14/20 23:46 07/14/20 23:46 07/14/20 23:46 - HEENT Head: Normocephalic, Atraumatic - Neurological Cognition: Normal Orientation: AAOx4 Notes: Able to ambulate without difficulty Course - Re-evaluation Re-evalutation: I have greeted and performed a rapid initial assessment of this patient. A comprehensive ED assessment and evaluation of the patient, analysis of test results and completion of medical decision making process will be conducted by an additional ED providers. - Vital Signs Vital signs: Temp Pulse Resp BP Pulse Ox 98.3 F 80 15 148/88 H 100 07/14/20 23:46 07/14/20 23:46 07/14/20 23:46 07/14/20 23:46 07/14/20 23:46 Doctor's Discharge - Discharge Referrals: SIS FRANCIS MD [Primary Care Provider] - Follow up as needed
--- NOTE | 2020-07-15 04:15 | ER Document Report ---
ED Headache - General Chief Complaint: Headache Stated Complaint: HEADACHE Time Seen by Provider: 07/15/20 00:36 Primary Care Provider: SIS FRANCIS MD [Primary Care Provider] - Follow up tomorrow (Call tomorrow for an outpatient follow-up appointment.) Mode of Arrival: Ambulatory Information source: Patient Notes: 49-year-old female presents to the emergency room complaining of a worsening headache. Patient states that she has been having headaches 2-3 times a week for the past 3 months. Denies any head trauma or head injury. No sudden thunderclap. Denies worst headache of her life. States has not seen her primary care physician for her symptoms. Has tried taking Tylenol, Motrin, and BC powder with minimal relief. Headaches do not keep her awake at night. Complains of some photophobia but denies any nausea or vomiting. No history of migraines. Does have a family history of migraines. TRAVEL OUTSIDE OF THE [place] IN LAST 30 DAYS: No - Related Data Allergies/Adverse Reactions: levofloxacin [From [employer]] Allergy (Mild, Verified 05/13/20 07:39) itching Home Medications: Clonazepam, Divalproex, Lialda, Amlodipine, Benztropine, Metoprolol Past Medical History - General Information source: Patient - Social History Smoking Status: Never Smoker Frequency of alcohol use: Occasional Drug Abuse: None Family History: Other - Migraines Patient has homicidal ideation: No - Past Medical History Cardiac Medical History: Reports: Hx Hypertension, Hx Pulmonary Embolism Pulmonary Medical History: Reports: Hx Asthma - Childhood asthma Endocrine Medical History: Reports: Hx Diabetes Mellitus Type 2 - WHEN ON STEROIDS Renal/ Medical History: Denies: Hx Peritoneal Dialysis GI Medical History: Reports: Hx Irritable Bowel, Hx Ulcerative Colitis Musculoskeletal Medical History: Denies Hx Arthritis Psychiatric Medical History: Reports: Hx Anxiety, Hx Schizophrenia Past Surgical History: Reports: Hx Section - 4 - Immunizations Immunizations up to date: Yes Hx Diphtheria, Pertussis, Tetanus Vaccination: Yes - 2010 Review of Systems - Review of Systems Constitutional: No symptoms reported EENT: No symptoms reported Cardiovascular: No symptoms reported Respiratory: No symptoms reported Gastrointestinal: No symptoms reported Genitourinary: No symptoms reported Musculoskeletal: No symptoms reported Skin: No symptoms reported Neurological/Psychological: Headaches -: Yes All other systems reviewed and negative Physical Exam - Vital signs Vitals: Temp Pulse Resp BP Pulse Ox 98.3 F 80 15 148/88 H 100 07/14/20 23:46 07/14/20 23:46 07/14/20 23:46 07/14/20 23:46 07/14/20 23:46 - General General appearance: Appears well, Alert In distress: Mild - HEENT Head: Normocephalic, Atraumatic Eyes: Normal Cornea: Normal Extraocular movements intact: Yes Pupils: PERRL - Respiratory Respiratory status: No respiratory distress Chest status: Nontender Breath sounds: Normal Chest palpation: Normal - Cardiovascular Rhythm: Regular Heart sounds: Normal auscultation Murmur: No - Back Back: Normal, Nontender. No: CVA tenderness - Neurological Neuro grossly intact: Yes Cognition: Normal Orientation: AAOx4 [place] Coma Scale Eye Opening: Spontaneous [place] Coma Scale Verbal: Oriented [place] Coma Scale Motor: Obeys Commands [place] Coma Scale Total: 15 Speech: Normal Motor strength normal: LUE, RUE, LLE, RLE Sensory: Normal - Skin Skin Temperature: Warm Skin Moisture: Dry Skin Color: Normal Course - Re-evaluation Re-evalutation: 07/15/20 04:12 Patient is resting comfortably states her headache has resolved. She was counseled on importance of outpatient follow-up with her primary care physician for further evaluation of her recurrent headaches. Continue with Tylenol and or Motrin as needed for pain. Patient was given strict return to the emergency room guidelines. Return for any new or worsening symptoms. All questions were answered. Patient verbalized understanding and agrees with plan of care. - Vital Signs Vital signs: Temp Pulse Resp BP Pulse Ox 98.3 F 80 15 148/88 H 100 07/14/20 23:46 07/14/20 23:46 07/14/20 23:46 07/14/20 23:46 07/14/20 23:46 - Laboratory Results Critical Laboratory Results Reviewed: No Critical Results - Radiology Results Critical Radiology Results Reviewed: No Critical Results Discharge - Discharge Clinical Impression: Headache Qualifiers: Headache type: unspecified Headache chronicity pattern: chronic headache Intractability: not intractable Qualified Code(s): R51.9 - Headache, unspecified Condition: Stable Disposition: HOME, SELF-CARE Instructions: Headache ([facility]) Additional Instructions: Tylenol and or Motrin as needed for pain. Follow-up with your primary care physician as soon as possible for further evaluation of your headaches. Return to the emergency room for any new or worsening symptoms. Referrals: SIS FRANCIS MD [Primary Care Provider] - Follow up tomorrow (Call tomorrow for an outpatient follow-up appointment.)
[2020-07-15 05:57] VITALS: BP 139/79
== END 2020-07-15 04:40 | disposition home or self-care (01) ==
LOC: ER 23:15
DX: R51.9 Headache, unspecified (principal); I10 Essential (primary) hypertension; Z86.711 Personal history of pulmonary embolism
CPT/HCPCS: 99284; 96374; 96375; J1885; J2765